=== PATIENT | female | born 1945 | race Caucasian/White ===

== ENCOUNTER 2022-06-29 15:50 | Emergency (ER) | payer MEDICARE, MEDICAID ==
[~2022-06-29] VITALS: Ht 154.9 cm; Wt 65.0 kg
[2022-06-29 16:30] LABS: CLARITY,URINE SLIGHTLY CLOUDY (Clear); COLOR,URINE YELLOW (Yellow); GLUCOSE, URINE NEGATIVE (Neg); KETONES,URINE NEGATIVE (Neg); LEUKOCYTE ESTERASE ,URINE MODERATE (Neg); NITRITES, URINE NEGATIVE (Neg); OCCULT BLOOD,URINE LARGE (Neg); PH,URINE 5.5 (4.8-8.0); PROTEIN,URINE NEGATIVE (Neg); UROBILINOGEN,URINE 0.2 E.U/dL (0.2-1.0)
[2022-06-29 16:32] LABS: UA COLLECTION TYPE CLN CATCH MIDSTREAM
[2022-06-29 16:35] LABS: BACTERIA,URINE 3+ /HPF (Neg); MUCUS STRANDS NONE SEEN /LPF (Neg); SQUAMOUS EPITHELIAL CELL,UR MODERATE /LPF (FEW); WBC,URINE TNTC /HPF (0-4)
[2022-06-29] MEDS ORDERED: cephalexin 250mg capsule PO ONE (16:35)
[2022-06-29] MEDS ORDERED: CEPH250T PO (16:37)
[2022-06-29 16:47] VITALS: BP 132/84
== END 2022-06-29 16:49 | disposition home or self-care (01) ==
LOC: ER 15:51
DX: N39.0 Urinary tract infection, site not specified (principal)
CPT/HCPCS: 81001; 87077; 87088; 87186; 99283